=== PATIENT | female | born 1945 | race Asian ===

== ENCOUNTER 2017-08-01 18:15 | Inpatient (IN) | payer MEDICARE, OTHER ==
[2017-08-01] MEDS: ONDANSETRON 4 MG INJ IV ×2 (19:11→20:53)
[2017-08-01] MEDS: HYDROmorphONE 2 MG/ML SYG IV ×2 (19:34→22:25)
[2017-08-01 19:37] LABS: ADD MAN DIFF? NO
[2017-08-01 19:39] LABS: WHITE BLOOD COUNT 7.6 10^3/ul (4.8-10.8)
[2017-08-01 19:39] LABS: BASOPHILS % 0.4 % (0.0-2.0); EOSINOPHILS # 0.3 10^3/ul (0.0-0.5); EOSINOPHILS % 3.8 % (0.0-7.0); HEMATOCRIT 39.5 % (42.0-52.0); HEMOGLOBIN 13.2 g/dl (14.0-18.0); LYMPHOCYTES # 2.5 10^3/ul (0.8-2.9); LYMPHOCYTES % 32.4 % (15.0-51.0); MEAN CORPUSCULAR HGB CONC 33.4 g/dl (32.0-37.0); MEAN CORPUSCULAR VOLUME 95.6 fl (82.0-101.0); MEAN PLATELET VOLUME 10.5 fl (7.4-10.4); MONOCYTE # 0.7 10^3/ul (0.3-0.9); MONOCYTES % 8.6 % (0.0-11.0); NEUTROPHIL # 4.2 10^3/ul (1.6-7.5); NEUTROPHILS % 54.5 % (39.0-77.0); PLATELET COUNT 215 10^3/UL (140-415); RED BLOOD COUNT 4.13 10^6/ul (4.70-6.10); RED CELL DISTRIBUTION WIDTH 11.9 % (11.5-14.5)
[2017-08-01 19:56] LABS: ANION GAP 13 (8-16); BLOOD UREA NITROGEN 19 mg/dl (7-20); CALCIUM 9.7 mg/dl (8.4-10.2); CARBON DIOXIDE 31 mmol/L (21-31); CHLORIDE 101 mmol/L (97-110); CREATININE 0.79 mg/dl (0.61-1.24); GLUCOSE 122 mg/dl (70-220); POTASSIUM 4.3 mmol/L (3.5-5.1); SODIUM 141 mmol/L (135-144)
[2017-08-01 20:00] LABS: INR 0.93; PROTIME 12.6 Sec (11.9-14.9)
[2017-08-01 20:01] LABS: PARTIAL THROMBOPLASTIN TIME 26.3 Sec (25.0-35.0)
[2017-08-01] MEDS: HYDROmorphONE 1 MG/ML SYG IV (20:54)
[2017-08-01] MEDS: SOD CHLORIDE 0.9% 1,000 ML IV (21:54)
[2017-08-01] MEDS ORDERED: ONDANSETRON 4 MG INJ IV (22:00)
[2017-08-01] MEDS ORDERED: ACETAMINOPHEN 325 MG TAB PO (22:00)
[2017-08-01] MEDS ORDERED: BISACODYL (EC) 5 MG TAB PO (23:30)
[2017-08-01] MEDS ORDERED: DOCUSATE SODIUM 100 MG CAP PO (23:30)
[2017-08-01] MEDS ORDERED: MAGNESIUM HYDROXIDE 30ML CUP PO (23:30)
[2017-08-02] MEDS ORDERED: PROPRANOLOL 20 MG TAB PO ×2 (00:38→21:00)
[2017-08-02] MEDS: morphine 2 MG INJ IV ×3 (00:53→09:15)
[2017-08-02] MEDS: NACL 0.9% 3 ML SYG IV (00:58)
[2017-08-02] MEDS: ATORVASTATIN 10 MG TAB PO ×2 (03:17→21:00)
[2017-08-02] MEDS: PROPRANOLOL 20 MG TAB PO (03:28)
[2017-08-02] MEDS: PROPRANOLOL (LA) 60 MG CAP PO ×2 (03:47→21:00)
[2017-08-02 04:50] LABS: ADD MAN DIFF? NO
[2017-08-02 04:55] LABS: WHITE BLOOD COUNT 8.9 10^3/ul (4.8-10.8)
[2017-08-02 04:55] LABS: BASOPHILS % 0.1 % (0.0-2.0); HEMATOCRIT 34.1 % (37.0-47.0); HEMOGLOBIN 11.5 g/dl (12.0-16.0); LYMPHOCYTES # 1.6 10^3/ul (0.8-2.9); LYMPHOCYTES % 17.8 % (15.0-51.0); MEAN CORPUSCULAR HEMOGLOBIN 32.2 pg (29.0-33.0); MEAN CORPUSCULAR HGB CONC 33.7 g/dl (32.0-37.0); MEAN CORPUSCULAR VOLUME 95.5 fl (82.0-101.0); MEAN PLATELET VOLUME 10.5 fl (7.4-10.4); MONOCYTE # 0.5 10^3/ul (0.3-0.9); MONOCYTES % 5.4 % (0.0-11.0); NEUTROPHIL # 6.8 10^3/ul (1.6-7.5); NEUTROPHILS % 76.5 % (39.0-77.0); PLATELET COUNT 184 10^3/UL (140-415); RED BLOOD COUNT 3.57 10^6/ul (4.20-5.40)
[2017-08-02 05:20] LABS: ANION GAP 11 (8-16); BLOOD UREA NITROGEN 17 mg/dl (7-20); CARBON DIOXIDE 29 mmol/L (21-31); CHLORIDE 106 mmol/L (97-110); CREATININE 0.65 mg/dl (0.44-1.00); GLUCOSE 132 mg/dl (70-220); MAGNESIUM 1.9 mg/dl (1.7-2.5); PHOSPHORUS 3.8 mg/dl (2.5-4.9); POTASSIUM 4.8 mmol/L (3.5-5.1); SODIUM 141 mmol/L (135-144)
[2017-08-02] MEDS ORDERED: CEFAZOLIN 1 GM INJ (07:00)
[2017-08-02] MEDS: ENOXAPARIN 40 MG/0.4 ML SYG SC (09:00)
[2017-08-02] MEDS: ONDANSETRON 4 MG INJ IV (09:15)
[2017-08-02] MEDS: HYDROmorphONE 0.5 MG/0.5 ML SYG IV ×2 (14:05→22:23)
[2017-08-02 15:49] LABS: ADD UMIC YES; UR ASCORBIC ACID 40 mg/dL (NEGATIVE); UR BACTERIA FEW /HPF (NONE SEEN); UR BILIRUBIN (Dip) NEGATIVE (NEGATIVE); UR BLOOD (Dip) NEGATIVE (NEGATIVE); UR CLARITY SLIGHTLY CLOUDY (CLEAR); UR COLOR YELLOW (YELLOW); UR GLUCOSE (Dip) NEGATIVE (NEGATIVE); UR KETONES (Dip) 1+ mg/dL (NEGATIVE); UR LEUKOCYTE ESTERASE (Dip) 1+ Leu/ul (NEGATIVE); UR MUCUS FEW /HPF (NONE SEEN); UR NITRITE (Dip) POSITIVE (NEGATIVE); UR RBC 1 /HPF (0-5); UR SPECIFIC GRAVITY (Dip) 1.024 (1.003-1.030); UR TOTAL PROTEIN (Dip) 1+ mg/dl (NEGATIVE); UR UROBILINOGEN (Dip) NEGATIVE (NEGATIVE); UR WBC 27 /HPF (0-5)
[2017-08-02] MEDS ORDERED: FENTAnyl 50 MCG/ML VIAL ×2 (16:44→17:01)
[2017-08-02] MEDS ORDERED: morphine SULFATE/PF (10 MG/10 ML) INJ (16:44)
[2017-08-02] MEDS ORDERED: LIDOCAINE 1% (MDV) 20 ML INJ (17:01)
[2017-08-02] MEDS ORDERED: ROCURONIUM 50 MG INJ (17:01)
[2017-08-02] MEDS ORDERED: PROPOFOL 20 ML (17:01)
[2017-08-02] MEDS ORDERED: PHENYLephrine (100 MCG/ML) 5ML SYG ×4 (17:13→19:53)
[2017-08-02] MEDS ORDERED: MIDAZOLAM 1 MG/ML 2 ML INJ ×2 (17:52→22:18)
[2017-08-02] MEDS ORDERED: DEXAMETHASONE 4 MG/ML 1 ML INJ ×2 (18:06→18:11)
[2017-08-02] MEDS ORDERED: ONDANSETRON 4 MG INJ (18:06)
[2017-08-02] MEDS ORDERED: FAMOTIDINE 20 MG INJ (18:06)
[2017-08-02] MEDS ORDERED: ROPIVACAINE 0.5 % 30 ML VIAL (18:11)
[2017-08-02] MEDS ORDERED: PHENYLephrine 10 MG INJ (18:46)
[2017-08-02 20:06] LABS: IMMEDIATE SPIN CROSSMATCH 1 2
[2017-08-02 21:48] LABS: ADD MAN DIFF? NO
[2017-08-02 21:53] LABS: WHITE BLOOD COUNT 10.3 10^3/ul (4.8-10.8)
[2017-08-02 21:53] LABS: BASOPHILS % 0.2 % (0.0-2.0); HEMATOCRIT 34.3 % (37.0-47.0); HEMOGLOBIN 11.7 g/dl (12.0-16.0); LYMPHOCYTES # 0.9 10^3/ul (0.8-2.9); LYMPHOCYTES % 8.5 % (15.0-51.0); MEAN CORPUSCULAR HEMOGLOBIN 32.4 pg (29.0-33.0); MEAN CORPUSCULAR HGB CONC 34.1 g/dl (32.0-37.0); MEAN PLATELET VOLUME 10.3 fl (7.4-10.4); MONOCYTE # 0.6 10^3/ul (0.3-0.9); MONOCYTES % 5.7 % (0.0-11.0); NEUTROPHIL # 8.8 10^3/ul (1.6-7.5); NEUTROPHILS % 85.2 % (39.0-77.0); PLATELET COUNT 115 10^3/UL (140-415); RED BLOOD COUNT 3.61 10^6/ul (4.20-5.40); RED CELL DISTRIBUTION WIDTH 13.6 % (11.5-14.5)
[2017-08-02] MEDS ORDERED: NALOXONE (0.4 MG/ML) INJ IV (22:00)
[2017-08-02] MEDS ORDERED: ONDANSETRON 4 MG INJ IV (22:00)
[2017-08-02] MEDS ORDERED: HYDROmorphONE 0.5 MG/0.5 ML SYG IV (22:00)
[2017-08-02] MEDS ORDERED: LIDOCAINE 1%/EPI 30 ML INJ (22:10)
[2017-08-02] MEDS ORDERED: HYDROmorphONE (0.2 MG/ML) 10ML SYG IV (22:11)
[2017-08-02] MEDS: MIDAZOLAM 1 MG/ML 2 ML INJ IV (22:36)
[2017-08-02 22:38] LABS: ANION GAP 9 (8-16); BLOOD UREA NITROGEN 12 mg/dl (7-20); CALCIUM 6.8 mg/dl (8.4-10.2); CARBON DIOXIDE 23 mmol/L (21-31); CHLORIDE 113 mmol/L (97-110); CREATININE 0.56 mg/dl (0.44-1.00); GLUCOSE 152 mg/dl (70-220); POTASSIUM 4.5 mmol/L (3.5-5.1); SODIUM 140 mmol/L (135-144)
[2017-08-02 23:07] LABS: INR 1.15; PROTIME 14.9 Sec (11.9-14.9); PT RATIO 1.2
[2017-08-02] MEDS: DIPHENHYDRAMINE 50 MG INJ IV (23:30)
[2017-08-03 05:20] LABS: ADD MAN DIFF? NO
[2017-08-03 05:28] LABS: BASOPHILS % 0.1 % (0.0-2.0); HEMATOCRIT 32.4 % (37.0-47.0); LYMPHOCYTES # 1.1 10^3/ul (0.8-2.9); LYMPHOCYTES % 8.9 % (15.0-51.0); MEAN CORPUSCULAR HEMOGLOBIN 32.1 pg (29.0-33.0); MEAN CORPUSCULAR VOLUME 94.5 fl (82.0-101.0); MEAN PLATELET VOLUME 10.8 fl (7.4-10.4); MONOCYTE # 0.6 10^3/ul (0.3-0.9); MONOCYTES % 4.8 % (0.0-11.0); NEUTROPHIL # 10.6 10^3/ul (1.6-7.5); NEUTROPHILS % 85.9 % (39.0-77.0); PLATELET COUNT 114 10^3/UL (140-415); RED BLOOD COUNT 3.43 10^6/ul (4.20-5.40); RED CELL DISTRIBUTION WIDTH 14.6 % (11.5-14.5)
[2017-08-03 05:28] LABS: WHITE BLOOD COUNT 12.4 10^3/ul (4.8-10.8)
[2017-08-03 05:47] LABS: POSITIVE DIFF @See below
[2017-08-03 05:59] LABS: ANION GAP 10 (8-16); BLOOD UREA NITROGEN 12 mg/dl (7-20); CALCIUM 7.6 mg/dl (8.4-10.2); CARBON DIOXIDE 28 mmol/L (21-31); CHLORIDE 111 mmol/L (97-110); CREATININE 0.68 mg/dl (0.44-1.00); GLUCOSE 139 mg/dl (70-220); POTASSIUM 4.5 mmol/L (3.5-5.1); SODIUM 144 mmol/L (135-144)
[2017-08-03] MEDS: ENOXAPARIN 40 MG/0.4 ML SYG SC (08:31)
[2017-08-03] MEDS: ONDANSETRON 4 MG INJ IV ×2 (14:49→23:19)
[2017-08-03] MEDS: HYDROmorphONE 0.5 MG/0.5 ML SYG IV ×2 (18:19→23:15)
[2017-08-03] MEDS: LEVOFLOXACIN 250 MG TAB PO (18:50)
[2017-08-03] MEDS: PROPRANOLOL (LA) 60 MG CAP PO (20:29)
[2017-08-03] MEDS: ATORVASTATIN 10 MG TAB PO (20:30)
[2017-08-03] MEDS ORDERED: VITAMIN A & D 5 GM OINT PACKET TOP (20:50)
[2017-08-04] MEDS: LEVOFLOXACIN 250 MG TAB PO (05:55)
[2017-08-04] MEDS ORDERED: LEVOFLOXACIN 250 MG TAB PO (06:00)
[2017-08-04] MEDS: ONDANSETRON 4 MG INJ IV (09:35)
[2017-08-04] MEDS: HYDROmorphONE 0.5 MG/0.5 ML SYG IV (09:36)
[2017-08-04] MEDS: ENOXAPARIN 40 MG/0.4 ML SYG SC (09:47)
[2017-08-04] MEDS: HYDROCODONE/APAP (5/325) TAB PO (15:20)
[2017-08-04] MEDS: ATORVASTATIN 10 MG TAB PO (20:34)
[2017-08-04] MEDS: DOCUSATE SODIUM 100 MG CAP PO (20:34)
[2017-08-04] MEDS: PROPRANOLOL (LA) 60 MG CAP PO (20:34)
[2017-08-05] MEDS: ACETAMINOPHEN 325 MG TAB PO (03:18)
[2017-08-05] MEDS: LEVOFLOXACIN 250 MG TAB PO (04:59)
[2017-08-05 05:54] LABS: ADD MAN DIFF? NO
[2017-08-05 05:57] LABS: WHITE BLOOD COUNT 10.1 10^3/ul (4.8-10.8)
[2017-08-05 05:57] LABS: BASOPHILS % 0.2 % (0.0-2.0); EOSINOPHILS # 0.1 10^3/ul (0.0-0.5); EOSINOPHILS % 1.3 % (0.0-7.0); HEMATOCRIT 24.7 % (37.0-47.0); HEMOGLOBIN 8.6 g/dl (12.0-16.0); LYMPHOCYTES # 1.6 10^3/ul (0.8-2.9); LYMPHOCYTES % 15.9 % (15.0-51.0); MEAN CORPUSCULAR HEMOGLOBIN 32.1 pg (29.0-33.0); MEAN CORPUSCULAR HGB CONC 34.8 g/dl (32.0-37.0); MEAN CORPUSCULAR VOLUME 92.2 fl (82.0-101.0); MEAN PLATELET VOLUME 11.1 fl (7.4-10.4); MONOCYTE # 1.1 10^3/ul (0.3-0.9); MONOCYTES % 10.6 % (0.0-11.0); NEUTROPHIL # 7.2 10^3/ul (1.6-7.5); NEUTROPHILS % 71.3 % (39.0-77.0); PLATELET COUNT 135 10^3/UL (140-415); RED BLOOD COUNT 2.68 10^6/ul (4.20-5.40); RED CELL DISTRIBUTION WIDTH 13.5 % (11.5-14.5)
[2017-08-05 06:08] LABS: POSITIVE DIFF @See below
[2017-08-05 06:55] LABS: ALANINE AMINOTRANSFERASE 42 IU/L (13-69); ALBUMIN 3.1 g/dl (3.3-4.9); ALBUMIN/GLOBULIN RATIO 1.29; ALKALINE PHOSPHATASE 56 IU/L (42-121); ANION GAP 12 (8-16); ASPARTATE AMINO TRANSFERASE 80 IU/L (15-46); BILIRUBIN,INDIRECT 0.5 mg/dl (0-1.1); BILIRUBIN,TOTAL 0.5 mg/dl (0.2-1.3); BLOOD UREA NITROGEN 10 mg/dl (7-20); CALCIUM 8.4 mg/dl (8.4-10.2); CARBON DIOXIDE 32 mmol/L (21-31); CHLORIDE 103 mmol/L (97-110); CREATININE 0.69 mg/dl (0.44-1.00); GLUCOSE 130 mg/dl (70-220); POTASSIUM 4.3 mmol/L (3.5-5.1); SODIUM 143 mmol/L (135-144); TOTAL PROTEIN 5.5 g/dl (6.1-8.1)
[2017-08-05 07:50] LABS: HEMOGLOBIN A1C 5.6 % (0-5.9)
[2017-08-05] MEDS: CALCIUM CARBONATE 1.25 GM TAB PO (09:04)
[2017-08-05] MEDS: ENOXAPARIN 40 MG/0.4 ML SYG SC (09:05)
[2017-08-05] MEDS: ONDANSETRON 4 MG INJ IV (10:56)
[2017-08-05] MEDS ORDERED: BISACODYL 10 MG SUPP PR (14:30)
[2017-08-05] MEDS: BISACODYL (EC) 5 MG TAB PO (14:34)
[2017-08-05] MEDS: MAGNESIUM HYDROXIDE 30ML CUP PO (14:34)
[2017-08-05] MEDS: ONDANSETRON 4 MG TAB PO (15:15)
[2017-08-05] MEDS: DOCUSATE SODIUM 100 MG CAP PO (21:00)
[2017-08-05] MEDS: ATORVASTATIN 10 MG TAB PO (21:09)
[2017-08-05] MEDS: PROPRANOLOL (LA) 60 MG CAP PO (21:10)
[2017-08-05] MEDS: HYDROCODONE/APAP (10/325) TAB PO (21:55)
[2017-08-06] MEDS: LEVOFLOXACIN 250 MG TAB PO (06:56)
[2017-08-06] MEDS: MAGNESIUM HYDROXIDE 30ML CUP PO ×2 (09:00→09:24)
[2017-08-06] MEDS: CALCIUM CARBONATE 1.25 GM TAB PO (09:23)
[2017-08-06] MEDS: ENOXAPARIN 40 MG/0.4 ML SYG SC (09:24)
[2017-08-06] MEDS: BISACODYL (EC) 5 MG TAB PO (09:24)
[2017-08-06] MEDS: ACETAMINOPHEN 325 MG TAB PO (10:09)
[2017-08-06] MEDS: HYDROCODONE/APAP (10/325) TAB PO ×3 (11:51→22:18)
[2017-08-06] MEDS: ATORVASTATIN 10 MG TAB PO (21:18)
[2017-08-06] MEDS: DOCUSATE SODIUM 100 MG CAP PO (21:18)
[2017-08-06] MEDS: PROPRANOLOL (LA) 60 MG CAP PO (21:19)
[2017-08-07 05:08] LABS: ADD MAN DIFF? NO
[2017-08-07 05:10] LABS: WHITE BLOOD COUNT 9.1 10^3/ul (4.8-10.8)
[2017-08-07 05:10] LABS: BASOPHILS % 0.2 % (0.0-2.0); EOSINOPHILS # 0.5 10^3/ul (0.0-0.5); EOSINOPHILS % 5.8 % (0.0-7.0); HEMATOCRIT 25.1 % (37.0-47.0); HEMOGLOBIN 8.4 g/dl (12.0-16.0); LYMPHOCYTES # 2.6 10^3/ul (0.8-2.9); LYMPHOCYTES % 28.6 % (15.0-51.0); MEAN CORPUSCULAR HEMOGLOBIN 31.8 pg (29.0-33.0); MEAN CORPUSCULAR HGB CONC 33.5 g/dl (32.0-37.0); MEAN CORPUSCULAR VOLUME 95.1 fl (82.0-101.0); MEAN PLATELET VOLUME 10.2 fl (7.4-10.4); MONOCYTE # 0.9 10^3/ul (0.3-0.9); MONOCYTES % 10.4 % (0.0-11.0); NEUTROPHIL # 4.9 10^3/ul (1.6-7.5); NEUTROPHILS % 54.4 % (39.0-77.0); NUCLEATED RED BLOOD CELLS% 0.4 /100WBC (0.0-0.0); PLATELET COUNT 231 10^3/UL (140-415); RED BLOOD COUNT 2.64 10^6/ul (4.20-5.40); RED CELL DISTRIBUTION WIDTH 13.3 % (11.5-14.5)
[2017-08-07] MEDS: LEVOFLOXACIN 250 MG TAB PO (05:41)
[2017-08-07] MEDS: HYDROCODONE/APAP (10/325) TAB PO ×2 (08:30→18:12)
[2017-08-07] MEDS: BISACODYL (EC) 5 MG TAB PO (08:30)
[2017-08-07] MEDS: CALCIUM CARBONATE 1.25 GM TAB PO (08:30)
[2017-08-07] MEDS: ENOXAPARIN 40 MG/0.4 ML SYG SC (08:31)
[2017-08-07] MEDS ORDERED: CHOLECALCIFEROL 2,000 UNIT CAP PO (10:00)
[2017-08-07] MEDS: ASCORBIC ACID 500 MG TAB PO ×3 (10:00→10:19)
[2017-08-07] MEDS: CHOLECALCIFEROL 2,000 UNIT CAP PO (10:19)
[2017-08-07] MEDS: FLUTICASONE 0.05% 16 GM NAS SPRAY NASAL (12:29)
[2017-08-07] MEDS: CALCIUM CARBONATE 500 MG CHEW TAB PO (18:35)
[2017-08-07] MEDS: FAMOTIDINE 20 MG TAB PO (18:35)
[2017-08-07] MEDS: PROPRANOLOL (LA) 60 MG CAP PO (20:23)
[2017-08-07] MEDS: DOCUSATE SODIUM 100 MG CAP PO (20:23)
[2017-08-07] MEDS: ATORVASTATIN 10 MG TAB PO (20:23)
== END 2017-08-07 21:50 | DRG 481 ==
LOC: E/R 18:15 → MS1 22:28
PROC: 0QS604Z Reposition Right Upper Femur with Internal Fixation Device, Open Approach (ICD-10-PCS; principal; 2017-08-02 16:00)
DX: S72.21XA Displaced subtrochanteric fracture of right femur, initial encounter for closed fracture (principal); N30.00 Acute cystitis without hematuria; D69.6 Thrombocytopenia, unspecified; I10 Essential (primary) hypertension; D50.9 Iron deficiency anemia, unspecified; E78.5 Hyperlipidemia, unspecified; S00.81XA Abrasion of other part of head, initial encounter; K59.00 Constipation, unspecified; W18.30XA Fall on same level, unspecified, initial encounter; W01.198A Fall on same level from slipping, tripping and stumbling with subsequent striking against other object, initial encounter; Y93.01 Activity, walking, marching and hiking; Y92.521 Bus station as the place of occurrence of the external cause
CPT/HCPCS: 36430; 70450; 71045; 73500; 73530; 73550; 80048; 80053; 81001; 82306; 83036; 83735; 84100; 84443; 85025; 85610; 85730; 86644; 86850; 86900; 86901; 86920; 87086; 93005; 96374; 96375; 96376; 97110; 97116; 97163; 97530; 99285-25

== ENCOUNTER 2017-08-07 21:55 | Inpatient (IN) | payer MEDICARE, OTHER ==
[2017-08-07] MEDS: HYDROCODONE/APAP (10/325) TAB PO (23:29)
[2017-08-08 00:05] LABS: ADD UMIC YES; UR ASCORBIC ACID NEGATIVE (NEGATIVE); UR BILIRUBIN (Dip) NEGATIVE (NEGATIVE); UR BLOOD (Dip) 2+ mg/dL (NEGATIVE); UR CLARITY CLEAR (CLEAR); UR COLOR YELLOW (YELLOW); UR GLUCOSE (Dip) NEGATIVE (NEGATIVE); UR KETONES (Dip) TRACE mg/dL (NEGATIVE); UR LEUKOCYTE ESTERASE (Dip) NEGATIVE Leu/ul (NEGATIVE); UR NITRITE (Dip) NEGATIVE (NEGATIVE); UR RBC 0 /HPF (0-5); UR SPECIFIC GRAVITY (Dip) 1.008 (1.003-1.030); UR TOTAL PROTEIN (Dip) NEGATIVE (NEGATIVE); UR UROBILINOGEN (Dip) NEGATIVE (NEGATIVE); UR WBC 1 /HPF (0-5)
[2017-08-08] MEDS: LEVOFLOXACIN 250 MG TAB PO (06:17)
[2017-08-08 06:33] LABS: ADD MAN DIFF? NO
[2017-08-08 06:41] LABS: BASOPHILS % 0.3 % (0.0-2.0); EOSINOPHILS # 0.4 10^3/ul (0.0-0.5); EOSINOPHILS % 3.8 % (0.0-7.0); HEMATOCRIT 27.6 % (37.0-47.0); HEMOGLOBIN 9.2 g/dl (12.0-16.0); LYMPHOCYTES # 2.1 10^3/ul (0.8-2.9); LYMPHOCYTES % 21.4 % (15.0-51.0); MEAN CORPUSCULAR HEMOGLOBIN 32.1 pg (29.0-33.0); MEAN CORPUSCULAR HGB CONC 33.3 g/dl (32.0-37.0); MEAN CORPUSCULAR VOLUME 96.2 fl (82.0-101.0); MEAN PLATELET VOLUME 9.5 fl (7.4-10.4); MONOCYTE # 0.8 10^3/ul (0.3-0.9); MONOCYTES % 8.4 % (0.0-11.0); NEUTROPHIL # 6.4 10^3/ul (1.6-7.5); NEUTROPHILS % 65.6 % (39.0-77.0); NUCLEATED RED BLOOD CELLS% 0.3 /100WBC (0.0-0.0); PLATELET COUNT 292 10^3/UL (140-415); RED BLOOD COUNT 2.87 10^6/ul (4.20-5.40); RED CELL DISTRIBUTION WIDTH 13.9 % (11.5-14.5)
[2017-08-08 06:41] LABS: WHITE BLOOD COUNT 9.7 10^3/ul (4.8-10.8)
[2017-08-08 07:15] LABS: ALANINE AMINOTRANSFERASE 45 IU/L (13-69); ALBUMIN 3.3 g/dl (3.3-4.9); ALBUMIN/GLOBULIN RATIO 1.22; ALKALINE PHOSPHATASE 57 IU/L (42-121); ANION GAP 11 (8-16); ASPARTATE AMINO TRANSFERASE 57 IU/L (15-46); BILIRUBIN,INDIRECT 0.7 mg/dl (0-1.1); BILIRUBIN,TOTAL 0.7 mg/dl (0.2-1.3); BLOOD UREA NITROGEN 12 mg/dl (7-20); CALCIUM 8.7 mg/dl (8.4-10.2); CARBON DIOXIDE 34 mmol/L (21-31); CHLORIDE 97 mmol/L (97-110); CREATININE 0.67 mg/dl (0.44-1.00); GLUCOSE 126 mg/dl (70-220); POTASSIUM 3.2 mmol/L (3.5-5.1); SODIUM 139 mmol/L (135-144)
[2017-08-08] MEDS: CHOLECALCIFEROL 2,000 UNIT CAP PO (08:40)
[2017-08-08] MEDS: HYDROCODONE/APAP (10/325) TAB PO ×4 (08:40→22:18)
[2017-08-08] MEDS: ASCORBIC ACID 500 MG TAB PO (08:40)
[2017-08-08] MEDS: ACETAMINOPHEN 325 MG TAB PO (10:46)
[2017-08-08] MEDS: POTASSIUM CHLORIDE (SR) 20 MEQ TAB PO (13:10)
[2017-08-08] MEDS: ATORVASTATIN 10 MG TAB PO (20:28)
[2017-08-08] MEDS: DOCUSATE SODIUM 100 MG CAP PO (20:28)
[2017-08-08] MEDS: PROPRANOLOL (LA) 60 MG CAP PO (20:28)
[2017-08-09] MEDS: HYDROCODONE/APAP (10/325) TAB PO ×4 (07:54→22:01)
[2017-08-09] MEDS: ONDANSETRON 4 MG TAB PO (08:49)
[2017-08-09] MEDS: CHOLECALCIFEROL 2,000 UNIT CAP PO (08:50)
[2017-08-09] MEDS: ASCORBIC ACID 500 MG TAB PO (08:50)
[2017-08-09] MEDS: ENOXAPARIN 40 MG/0.4 ML SYG SC (08:53)
[2017-08-09] MEDS ORDERED: LACTULOSE 30ML CUP PO (09:00)
[2017-08-09] MEDS: PROPRANOLOL (LA) 60 MG CAP PO (21:00)
[2017-08-09] MEDS: DOCUSATE SODIUM 100 MG CAP PO (21:15)
[2017-08-09] MEDS: ATORVASTATIN 10 MG TAB PO (21:15)
[2017-08-10] MEDS: ASCORBIC ACID 500 MG TAB PO (08:26)
[2017-08-10] MEDS: SENNA TAB PO (08:26)
[2017-08-10] MEDS: CHOLECALCIFEROL 2,000 UNIT CAP PO (08:26)
[2017-08-10] MEDS: ENOXAPARIN 40 MG/0.4 ML SYG SC (08:30)
[2017-08-10] MEDS: ONDANSETRON 4 MG TAB PO ×2 (09:34→17:17)
[2017-08-10] MEDS: HYDROCODONE/APAP (10/325) TAB PO ×3 (09:34→22:23)
[2017-08-10 12:20] LABS: ADD MAN DIFF? NO
[2017-08-10 12:22] LABS: BASOPHILS % 0.3 % (0.0-2.0); EOSINOPHILS # 0.4 10^3/ul (0.0-0.5); EOSINOPHILS % 3.6 % (0.0-7.0); HEMATOCRIT 25.5 % (37.0-47.0); HEMOGLOBIN 8.3 g/dl (12.0-16.0); LYMPHOCYTES # 2.1 10^3/ul (0.8-2.9); LYMPHOCYTES % 17.5 % (15.0-51.0); MEAN CORPUSCULAR HEMOGLOBIN 32.3 pg (29.0-33.0); MEAN CORPUSCULAR HGB CONC 32.5 g/dl (32.0-37.0); MEAN CORPUSCULAR VOLUME 99.2 fl (82.0-101.0); MEAN PLATELET VOLUME 9.2 fl (7.4-10.4); MONOCYTE # 1.2 10^3/ul (0.3-0.9); MONOCYTES % 9.6 % (0.0-11.0); NEUTROPHIL # 8.1 10^3/ul (1.6-7.5); NEUTROPHILS % 67.7 % (39.0-77.0); PLATELET COUNT 342 10^3/UL (140-415); RED BLOOD COUNT 2.57 10^6/ul (4.20-5.40)
[2017-08-10] MEDS: ATORVASTATIN 10 MG TAB PO (20:51)
[2017-08-10] MEDS: DOCUSATE SODIUM 100 MG CAP PO (20:51)
[2017-08-10] MEDS: PROPRANOLOL (LA) 60 MG CAP PO (20:52)
[2017-08-10] MEDS: BISACODYL 10 MG SUPP PR (20:56)
[2017-08-11] MEDS: METHOCARBAMOL 750 MG TAB PO (09:02)
[2017-08-11] MEDS: HYDROCODONE/APAP (10/325) TAB PO ×3 (09:03→23:38)
[2017-08-11] MEDS: CHOLECALCIFEROL 2,000 UNIT CAP PO (09:03)
[2017-08-11] MEDS: SENNA TAB PO (09:03)
[2017-08-11] MEDS: ASCORBIC ACID 500 MG TAB PO (09:03)
[2017-08-11] MEDS: ENOXAPARIN 40 MG/0.4 ML SYG SC (09:06)
[2017-08-11] MEDS: PANTOPRAZOLE (EC) 40 MG TAB PO (12:10)
[2017-08-11] MEDS: DOCUSATE SODIUM 100 MG CAP PO (20:24)
[2017-08-11] MEDS: ATORVASTATIN 10 MG TAB PO (20:24)
[2017-08-11] MEDS: PROPRANOLOL (LA) 60 MG CAP PO (20:25)
[2017-08-12] MEDS: PANTOPRAZOLE (EC) 40 MG TAB PO (06:08)
[2017-08-12] MEDS: HYDROCODONE/APAP (10/325) TAB PO ×2 (08:11→15:10)
[2017-08-12] MEDS: SENNA TAB PO (08:11)
[2017-08-12] MEDS: CHOLECALCIFEROL 2,000 UNIT CAP PO (08:12)
[2017-08-12] MEDS: ASCORBIC ACID 500 MG TAB PO (08:12)
[2017-08-12] MEDS: ENOXAPARIN 40 MG/0.4 ML SYG SC (08:32)
[2017-08-12] MEDS: ATORVASTATIN 10 MG TAB PO (20:42)
[2017-08-12] MEDS: DOCUSATE SODIUM 100 MG CAP PO (20:42)
[2017-08-12] MEDS: BISACODYL (EC) 5 MG TAB PO (20:42)
[2017-08-12] MEDS: PROPRANOLOL (LA) 60 MG CAP PO (20:44)
[2017-08-13] MEDS: HYDROCODONE/APAP (10/325) TAB PO ×2 (00:21→08:32)
[2017-08-13] MEDS: PANTOPRAZOLE (EC) 40 MG TAB PO (06:34)
[2017-08-13] MEDS: BISACODYL (EC) 5 MG TAB PO (06:39)
[2017-08-13] MEDS: CHOLECALCIFEROL 2,000 UNIT CAP PO (08:22)
[2017-08-13] MEDS: SENNA TAB PO (08:22)
[2017-08-13] MEDS: ASCORBIC ACID 500 MG TAB PO (08:22)
[2017-08-13] MEDS: ENOXAPARIN 40 MG/0.4 ML SYG SC (08:25)
[2017-08-13] MEDS: MAGNESIUM HYDROXIDE 30ML CUP PO (16:30)
[2017-08-13] MEDS: DOCUSATE SODIUM 100 MG CAP PO (17:00)
[2017-08-13] MEDS ORDERED: NA PHOSPHATE/BIPHOS 133 ML ENEMA PR (20:00)
[2017-08-13] MEDS: PROPRANOLOL (LA) 60 MG CAP PO (20:41)
[2017-08-13] MEDS: ATORVASTATIN 10 MG TAB PO (20:41)
[2017-08-14] MEDS: ACETAMINOPHEN 325 MG TAB PO ×3 (01:27→18:37)
[2017-08-14] MEDS: PANTOPRAZOLE (EC) 40 MG TAB PO (06:28)
[2017-08-14] MEDS: ASCORBIC ACID 500 MG TAB PO (09:11)
[2017-08-14] MEDS: CHOLECALCIFEROL 2,000 UNIT CAP PO (09:11)
[2017-08-14] MEDS: SENNA TAB PO (09:12)
[2017-08-14] MEDS: ENOXAPARIN 40 MG/0.4 ML SYG SC (09:13)
[2017-08-14] MEDS: ATORVASTATIN 10 MG TAB PO (20:17)
[2017-08-14] MEDS: PROPRANOLOL (LA) 60 MG CAP PO (20:18)
[2017-08-14] MEDS: DOCUSATE SODIUM 100 MG CAP PO (20:18)
[2017-08-15] MEDS: ACETAMINOPHEN 325 MG TAB PO ×3 (00:15→15:47)
[2017-08-15] MEDS: PANTOPRAZOLE (EC) 40 MG TAB PO (06:26)
[2017-08-15] MEDS: CHOLECALCIFEROL 2,000 UNIT CAP PO (08:40)
[2017-08-15] MEDS: ASCORBIC ACID 500 MG TAB PO (08:40)
[2017-08-15] MEDS: DOCUSATE SODIUM 100 MG CAP PO ×2 (08:40→21:10)
[2017-08-15] MEDS: SENNA TAB PO (08:40)
[2017-08-15] MEDS: ENOXAPARIN 40 MG/0.4 ML SYG SC (08:41)
[2017-08-15] MEDS: traMADol 50 MG TAB PO ×2 (16:35→21:10)
[2017-08-15] MEDS: METHOCARBAMOL 750 MG TAB PO (17:37)
[2017-08-15] MEDS: PROPRANOLOL (LA) 60 MG CAP PO (21:00)
[2017-08-15] MEDS: ATORVASTATIN 10 MG TAB PO (21:10)
[2017-08-16] MEDS: traMADol 50 MG TAB PO ×3 (02:44→18:13)
[2017-08-16] MEDS: PANTOPRAZOLE (EC) 40 MG TAB PO (06:56)
[2017-08-16] MEDS: ENOXAPARIN 40 MG/0.4 ML SYG SC (08:49)
[2017-08-16] MEDS: ASCORBIC ACID 500 MG TAB PO (08:51)
[2017-08-16] MEDS: DOCUSATE SODIUM 100 MG CAP PO ×2 (08:51→20:14)
[2017-08-16] MEDS: CHOLECALCIFEROL 2,000 UNIT CAP PO (08:51)
[2017-08-16] MEDS: SENNA TAB PO (08:51)
[2017-08-16 12:18] LABS: ADD MAN DIFF? NO
[2017-08-16 12:21] LABS: BASOPHILS % 0.2 % (0.0-2.0); EOSINOPHILS # 0.1 10^3/ul (0.0-0.5); EOSINOPHILS % 1.4 % (0.0-7.0); HEMATOCRIT 30.6 % (37.0-47.0); LYMPHOCYTES # 1.3 10^3/ul (0.8-2.9); LYMPHOCYTES % 13.1 % (15.0-51.0); MEAN CORPUSCULAR HGB CONC 32.7 g/dl (32.0-37.0); MEAN PLATELET VOLUME 8.4 fl (7.4-10.4); MONOCYTE # 0.7 10^3/ul (0.3-0.9); MONOCYTES % 6.7 % (0.0-11.0); NEUTROPHIL # 7.7 10^3/ul (1.6-7.5); NEUTROPHILS % 78.1 % (39.0-77.0); PLATELET COUNT 503 10^3/UL (140-415); RED BLOOD COUNT 3.03 10^6/ul (4.20-5.40); RED CELL DISTRIBUTION WIDTH 16.1 % (11.5-14.5)
[2017-08-16 12:21] LABS: WHITE BLOOD COUNT 9.9 10^3/ul (4.8-10.8)
[2017-08-16] MEDS: ATORVASTATIN 10 MG TAB PO (20:14)
[2017-08-16] MEDS: PROPRANOLOL (LA) 60 MG CAP PO (20:14)
[2017-08-16] MEDS: BISACODYL (EC) 5 MG TAB PO (21:23)
[2017-08-17] MEDS: PANTOPRAZOLE (EC) 40 MG TAB PO (06:32)
[2017-08-17] MEDS: ASCORBIC ACID 500 MG TAB PO (08:50)
[2017-08-17] MEDS: DOCUSATE SODIUM 100 MG CAP PO ×2 (08:50→20:34)
[2017-08-17] MEDS: SENNA TAB PO (08:50)
[2017-08-17] MEDS: CHOLECALCIFEROL 2,000 UNIT CAP PO (08:50)
[2017-08-17] MEDS: traMADol 50 MG TAB PO ×2 (08:51→12:54)
[2017-08-17] MEDS: ENOXAPARIN 40 MG/0.4 ML SYG SC (08:55)
[2017-08-17] MEDS ORDERED: HYDROCODONE/APAP (5/325) TAB PO (12:30)
[2017-08-17] MEDS: METHOCARBAMOL 750 MG TAB PO (12:54)
[2017-08-17] MEDS: HYDROCODONE/APAP (5/325) TAB PO (14:14)
[2017-08-17] MEDS: ACETAMINOPHEN 325 MG TAB PO (18:32)
[2017-08-17] MEDS: ATORVASTATIN 10 MG TAB PO (20:34)
[2017-08-17] MEDS: PROPRANOLOL (LA) 60 MG CAP PO (20:35)
[2017-08-18] MEDS: PANTOPRAZOLE (EC) 40 MG TAB PO (06:31)
[2017-08-18] MEDS: traMADol 50 MG TAB PO (06:31)
[2017-08-18] MEDS: ENOXAPARIN 40 MG/0.4 ML SYG SC (08:10)
[2017-08-18] MEDS: CHOLECALCIFEROL 2,000 UNIT CAP PO (08:15)
[2017-08-18] MEDS: SENNA TAB PO (08:15)
[2017-08-18] MEDS: ASCORBIC ACID 500 MG TAB PO (08:15)
[2017-08-18] MEDS: DOCUSATE SODIUM 100 MG CAP PO ×2 (08:15→21:12)
[2017-08-18] MEDS: HYDROCODONE/APAP (5/325) TAB PO ×3 (09:00→21:09)
[2017-08-18] MEDS: PROPRANOLOL (LA) 60 MG CAP PO (21:00)
[2017-08-18] MEDS: ATORVASTATIN 10 MG TAB PO (21:09)
[2017-08-19] MEDS: traMADol 50 MG TAB PO ×2 (00:12→06:53)
[2017-08-19] MEDS: PANTOPRAZOLE (EC) 40 MG TAB PO (06:12)
[2017-08-19 06:52] LABS: ADD MAN DIFF? NO
[2017-08-19 07:01] LABS: BASOPHILS % 0.5 % (0.0-2.0); EOSINOPHILS # 0.3 10^3/ul (0.0-0.5); EOSINOPHILS % 4.3 % (0.0-7.0); HEMATOCRIT 29.5 % (37.0-47.0); HEMOGLOBIN 9.4 g/dl (12.0-16.0); LYMPHOCYTES # 1.7 10^3/ul (0.8-2.9); LYMPHOCYTES % 28.7 % (15.0-51.0); MEAN CORPUSCULAR HEMOGLOBIN 32.1 pg (29.0-33.0); MEAN CORPUSCULAR HGB CONC 31.9 g/dl (32.0-37.0); MEAN CORPUSCULAR VOLUME 100.7 fl (82.0-101.0); MEAN PLATELET VOLUME 8.6 fl (7.4-10.4); MONOCYTE # 0.7 10^3/ul (0.3-0.9); MONOCYTES % 11.1 % (0.0-11.0); NEUTROPHIL # 3.3 10^3/ul (1.6-7.5); NEUTROPHILS % 55.1 % (39.0-77.0); PLATELET COUNT 466 10^3/UL (140-415); RED BLOOD COUNT 2.93 10^6/ul (4.20-5.40); RED CELL DISTRIBUTION WIDTH 16.1 % (11.5-14.5)
[2017-08-19 07:01] LABS: WHITE BLOOD COUNT 6.1 10^3/ul (4.8-10.8)
[2017-08-19 07:20] LABS: ANION GAP 12 (8-16); BLOOD UREA NITROGEN 17 mg/dl (7-20); CALCIUM 8.9 mg/dl (8.4-10.2); CARBON DIOXIDE 30 mmol/L (21-31); CHLORIDE 105 mmol/L (97-110); CREATININE 0.64 mg/dl (0.44-1.00); GLUCOSE 99 mg/dl (70-220); POTASSIUM 4.9 mmol/L (3.5-5.1); SODIUM 142 mmol/L (135-144)
[2017-08-19] MEDS: ENOXAPARIN 40 MG/0.4 ML SYG SC (08:08)
[2017-08-19] MEDS: SENNA TAB PO (08:09)
[2017-08-19] MEDS: CHOLECALCIFEROL 2,000 UNIT CAP PO (08:09)
[2017-08-19] MEDS: DOCUSATE SODIUM 100 MG CAP PO (08:09)
[2017-08-19] MEDS: ASCORBIC ACID 500 MG TAB PO (08:10)
== END 2017-08-19 09:45 | disposition home health service (06) | DRG 560 ==
LOC: VRC 21:55
PROC: F07Z5ZZ Bed Mobility Treatment (ICD-10-PCS; principal; 2017-08-07)
PROC: F08Z2ZZ Grooming/Personal Hygiene Treatment (ICD-10-PCS; 2017-08-07)
DX: S72.21XD Displaced subtrochanteric fracture of right femur, subsequent encounter for closed fracture with routine healing (principal); N30.00 Acute cystitis without hematuria; D64.9 Anemia, unspecified; I10 Essential (primary) hypertension; R52 Pain, unspecified; E78.5 Hyperlipidemia, unspecified; D72.829 Elevated white blood cell count, unspecified; Z96.643 Presence of artificial hip joint, bilateral
CPT/HCPCS: 80048; 80053; 81001; 85025; 87081; 87086; 92526; 92610; 97110; 97112; 97116; 97150; 97163; 97167; 97530; 97535; 97542

== ENCOUNTER 2017-09-24 11:50 | Inpatient (IN) | payer MEDICARE, OTHER ==
[2017-09-24 16:27] LABS: ADD MAN DIFF? NO
[2017-09-24 16:34] LABS: WHITE BLOOD COUNT 6.7 10^3/ul (4.8-10.8)
[2017-09-24 16:34] LABS: BASOPHILS % 0.5 % (0.0-2.0); EOSINOPHILS # 0.4 10^3/ul (0.0-0.5); EOSINOPHILS % 6.5 % (0.0-7.0); HEMATOCRIT 40.2 % (37.0-47.0); LYMPHOCYTES # 2.3 10^3/ul (0.8-2.9); LYMPHOCYTES % 34.9 % (15.0-51.0); MEAN CORPUSCULAR HGB CONC 32.3 g/dl (32.0-37.0); MEAN CORPUSCULAR VOLUME 95.9 fl (82.0-101.0); MEAN PLATELET VOLUME 9.6 fl (7.4-10.4); MONOCYTE # 0.6 10^3/ul (0.3-0.9); MONOCYTES % 8.7 % (0.0-11.0); NEUTROPHIL # 3.3 10^3/ul (1.6-7.5); NEUTROPHILS % 49.1 % (39.0-77.0); PLATELET COUNT 284 10^3/UL (140-415); RED BLOOD COUNT 4.19 10^6/ul (4.20-5.40); RED CELL DISTRIBUTION WIDTH 13.1 % (11.5-14.5)
[2017-09-24 16:49] LABS: INR 0.94; PROTIME 12.7 Sec (11.9-14.9)
[2017-09-24 16:50] LABS: PARTIAL THROMBOPLASTIN TIME 28.1 Sec (25.0-35.0)
[2017-09-24 16:54] LABS: ANION GAP 17 (8-16); BLOOD UREA NITROGEN 14 mg/dl (7-20); CALCIUM 10.1 mg/dl (8.4-10.2); CARBON DIOXIDE 32 mmol/L (21-31); CHLORIDE 100 mmol/L (97-110); GLUCOSE 122 mg/dl (70-220); POTASSIUM 3.6 mmol/L (3.5-5.1); SODIUM 145 mmol/L (135-144)
[2017-09-24] MEDS ORDERED: ONDANSETRON 4 MG INJ IV (18:30)
[2017-09-24] MEDS ORDERED: morphine 2 MG INJ IV (18:30)
[2017-09-24] MEDS: FAMOTIDINE 20 MG TAB PO (21:27)
[2017-09-24] MEDS: ATORVASTATIN 10 MG TAB PO (21:27)
[2017-09-25 05:37] LABS: ALANINE AMINOTRANSFERASE 23 IU/L (13-69); ALBUMIN/GLOBULIN RATIO 1.29; ALKALINE PHOSPHATASE 118 IU/L (42-121); ANION GAP 18 (8-16); ASPARTATE AMINO TRANSFERASE 30 IU/L (15-46); BILIRUBIN,INDIRECT 0.3 mg/dl (0-1.1); BILIRUBIN,TOTAL 0.3 mg/dl (0.2-1.3); BLOOD UREA NITROGEN 14 mg/dl (7-20); CALCIUM 9.7 mg/dl (8.4-10.2); CARBON DIOXIDE 30 mmol/L (21-31); CHLORIDE 104 mmol/L (97-110); CREATININE 0.63 mg/dl (0.44-1.00); GLUCOSE 104 mg/dl (70-220); POTASSIUM 4.7 mmol/L (3.5-5.1); SODIUM 147 mmol/L (135-144); TOTAL PROTEIN 7.1 g/dl (6.1-8.1)
[2017-09-25] MEDS: D5W-0.45 NACL + KCL 20 MEQ 1,000 ML IV (09:14)
[2017-09-25] MEDS: PROPRANOLOL 20 MG TAB PO (09:20)
[2017-09-25] MEDS: FAMOTIDINE 20 MG TAB PO ×2 (09:21→21:00)
[2017-09-25] MEDS ORDERED: LIDOCAINE 2% (SDV) 5 ML INJ (15:42)
[2017-09-25] MEDS ORDERED: morphine SULFATE/PF (10 MG/10 ML) INJ (15:42)
[2017-09-25] MEDS ORDERED: MIDAZOLAM 1 MG/ML 2 ML INJ (15:42)
[2017-09-25] MEDS ORDERED: BUPIVACAINE 0.75%/DEXT (SPINAL) 2 ML INJ (15:42)
[2017-09-25] MEDS ORDERED: PROPOFOL 20 ML (15:42)
[2017-09-25] MEDS ORDERED: EPHEDrine SULFATE 50 MG/5 ML SYG (16:07)
[2017-09-25] MEDS ORDERED: CEFAZOLIN 1 GM INJ ×2 (16:10→21:03)
[2017-09-25] MEDS ORDERED: FAMOTIDINE 20 MG INJ (16:16)
[2017-09-25] MEDS ORDERED: ONDANSETRON 4 MG INJ (16:16)
[2017-09-25] MEDS ORDERED: DEXAMETHASONE 4 MG/ML 1 ML INJ (16:16)
[2017-09-25] MEDS ORDERED: PHENYLephrine (100 MCG/ML) 5ML SYG ×2 (17:44→19:36)
[2017-09-25] MEDS ORDERED: GLYCOPYRROLATE 0.4 MG INJ (17:44)
[2017-09-25] MEDS: POLYMYXIN/BACITRACIN 1L IRRIG (17:48)
[2017-09-25] MEDS ORDERED: PHENYLephrine 10 MG INJ ×2 (18:33→19:49)
[2017-09-25 19:02] LABS: ADD MAN DIFF? NO
[2017-09-25] MEDS ORDERED: ALBUMIN HUMAN 5% 250 ML ×2 (20:30→20:49)
[2017-09-25 20:36] LABS: AADO2 Arterial 521.1 mmHg (7.0-24.0); Arterial Base Excess -4.9 mmol/L (-3.0-3); Arterial Blood Gas Oxygen Sat 98.2 mmHG (95.0-100.0); Arterial COHb 0.3 % (0.0-3.0); Arterial Fraction of Oxyhgb 97.4 % (93.0-99.0); Arterial HCO3 21.3 mmol/L (22.0-26.0); Arterial MetHb 0.5 % (0.0-1.5); Arterial Total Hemglobin 8.8 g/dl (12.0-18.0); MODE NON-REBREATHING MASK; Site A-Line
[2017-09-25] MEDS ORDERED: HETASTARCH 6% NACL 500 ML ×2 (20:50→22:42)
[2017-09-25] MEDS: ATORVASTATIN 10 MG TAB PO (21:00)
[2017-09-25 21:21] LABS: ANION GAP 10 (8-16); CARBON DIOXIDE 19 mmol/L (21-31); CHLORIDE 116 mmol/L (97-110); POTASSIUM 4.1 mmol/L (3.5-5.1); SODIUM 141 mmol/L (135-144)
[2017-09-25 21:34] LABS: WHITE BLOOD COUNT 9.7 10^3/ul (4.8-10.8)
[2017-09-25 21:34] LABS: BASOPHILS % 0.3 % (0.0-2.0); EOSINOPHILS # 0.1 10^3/ul (0.0-0.5); EOSINOPHILS % 1.3 % (0.0-7.0); HEMATOCRIT 30.6 % (37.0-47.0); HEMOGLOBIN 10.1 g/dl (12.0-16.0); LYMPHOCYTES # 1.9 10^3/ul (0.8-2.9); LYMPHOCYTES % 19.8 % (15.0-51.0); MEAN CORPUSCULAR HEMOGLOBIN 31.6 pg (29.0-33.0); MEAN CORPUSCULAR VOLUME 95.6 fl (82.0-101.0); MEAN PLATELET VOLUME 10.5 fl (7.4-10.4); MONOCYTE # 0.3 10^3/ul (0.3-0.9); MONOCYTES % 3.1 % (0.0-11.0); NEUTROPHIL # 7.3 10^3/ul (1.6-7.5); PLATELET COUNT 230 10^3/UL (140-415); RED CELL DISTRIBUTION WIDTH 13.1 % (11.5-14.5)
[2017-09-25] MEDS: BACITRACIN 50000 UNITS INJ (22:18)
[2017-09-25] MEDS: POLYMYXIN B 500000 UNIT INJ IRR (22:19)
[2017-09-26] MEDS ORDERED: FENTAnyl 50 MCG/ML VIAL IV
[2017-09-26] MEDS ORDERED: HYDROmorphONE (0.2 MG/ML) 10ML SYG IV
[2017-09-26] MEDS ORDERED: PROCHLORPERAZINE 10 MG INJ IV
[2017-09-26] MEDS ORDERED: EPHEDrine SULFATE 50 MG/5 ML SYG IV
[2017-09-26] MEDS ORDERED: MEPERIDINE 25 MG INJ IV
[2017-09-26] MEDS: SOD CHLORIDE 0.9% 250 ML IV* (00:28)
[2017-09-26] MEDS ORDERED: HYDROCODONE/APAP (5/325) TAB PO (00:30)
[2017-09-26] MEDS ORDERED: ALBUMIN HUMAN 5% 250 ML (00:30)
[2017-09-26] MEDS ORDERED: NACL 0.9% 3 ML SYG IV (00:30)
[2017-09-26 00:53] LABS: ADD MAN DIFF? NO
[2017-09-26] MEDS ORDERED: DIPHENHYDRAMINE 50 MG INJ IV ×2 (01:00)
[2017-09-26] MEDS ORDERED: NALOXONE (0.4 MG/ML) INJ IV (01:00)
[2017-09-26] MEDS ORDERED: ONDANSETRON 4 MG INJ IV ×2 (01:00)
[2017-09-26] MEDS ORDERED: HYDROmorphONE 0.5 MG/0.5 ML SYG IV ×2 (01:00)
[2017-09-26 01:04] LABS: AADO2 Arterial 293.8 mmHg (7.0-24.0); Arterial Base Excess -9.4 mmol/L (-3.0-3); Arterial Blood Gas Oxygen Sat 96.6 mmHG (95.0-100.0); Arterial COHb 0.3 % (0.0-3.0); Arterial Fraction of Oxyhgb 95.6 % (93.0-99.0); Arterial HCO3 16.4 mmol/L (22.0-26.0); Arterial MetHb 0.7 % (0.0-1.5); Arterial Total Hemglobin 3.7 g/dl (12.0-18.0); Arterial pCO2 35.2 mmhg (35-45); MODE SIMPLE MASK; Site A-Line
[2017-09-26] MEDS: CEFAZOLIN 1 GM/50 ML (PMX) 50 ML IVPB ×3 (01:09→16:06)
[2017-09-26] MEDS: ALBUMIN HUMAN 5% 250 ML IV (01:16)
[2017-09-26 01:28] LABS: ADD MAN DIFF? NO
[2017-09-26 01:30] LABS: ABNORMAL IP MESSAGE 1; EOSINOPHILS % 0.1 % (0.0-7.0); HEMATOCRIT 11.7 % (37.0-47.0); LYMPHOCYTES # 0.7 10^3/ul (0.8-2.9); LYMPHOCYTES % 7.7 % (15.0-51.0); MEAN CORPUSCULAR HEMOGLOBIN 29.5 pg (29.0-33.0); MEAN CORPUSCULAR HGB CONC 32.5 g/dl (32.0-37.0); MEAN CORPUSCULAR VOLUME 90.7 fl (82.0-101.0); MEAN PLATELET VOLUME 9.9 fl (7.4-10.4); MONOCYTE # 0.6 10^3/ul (0.3-0.9); MONOCYTES % 6.3 % (0.0-11.0); NEUTROPHIL # 7.8 10^3/ul (1.6-7.5); NEUTROPHILS % 84.7 % (39.0-77.0); PLATELET COUNT 53 10^3/UL (140-415); RED BLOOD COUNT 1.29 10^6/ul (4.20-5.40); RED CELL DISTRIBUTION WIDTH 16.7 % (11.5-14.5)
[2017-09-26 01:30] LABS: WHITE BLOOD COUNT 9.2 10^3/ul (4.8-10.8)
[2017-09-26 01:49] LABS: ANION GAP 15 (8-16); BLOOD UREA NITROGEN 9 mg/dl (7-20); CALCIUM 6.3 mg/dl (8.4-10.2); CARBON DIOXIDE 16 mmol/L (21-31); CHLORIDE 115 mmol/L (97-110); CREATININE 0.61 mg/dl (0.44-1.00); GLUCOSE 187 mg/dl (70-220); POTASSIUM 4.6 mmol/L (3.5-5.1); SODIUM 141 mmol/L (135-144)
[2017-09-26] MEDS: DEXTROSE 5%-LR 1,000 ML IV (02:07)
[2017-09-26] MEDS: HYDROmorphONE 0.5 MG/0.5 ML SYG IV (02:13)
[2017-09-26 02:29] LABS: HEMOGLOBIN 3.8 g/dl (12.0-16.0); POSITIVE DIFF @See below
[2017-09-26 04:11] LABS: RED BLOOD COUNT 1.29 10^6/ul (4.20-5.40)
[2017-09-26 04:11] LABS: WHITE BLOOD COUNT 9.2 10^3/ul (4.8-10.8)
[2017-09-26 04:12] LABS: HEMATOCRIT 11.7 % (37.0-47.0); HEMOGLOBIN 3.8 g/dl (12.0-16.0); MEAN CORPUSCULAR VOLUME 90.7 fl (82.0-101.0)
[2017-09-26 04:13] LABS: EOSINOPHILS % 0.1 % (0.0-7.0); LYMPHOCYTES % 7.7 % (15.0-51.0); MEAN CORPUSCULAR HEMOGLOBIN 29.5 pg (29.0-33.0); MEAN CORPUSCULAR HGB CONC 32.5 g/dl (32.0-37.0); MEAN PLATELET VOLUME 9.9 fl (7.4-10.4); MONOCYTES % 6.3 % (0.0-11.0); NEUTROPHILS % 84.7 % (39.0-77.0); PLATELET COUNT 53 10^3/UL (140-440); RED CELL DISTRIBUTION WIDTH 16.7 % (11.5-14.5)
[2017-09-26 04:14] LABS: LYMPHOCYTES # 0.7 10^3/ul (0.8-2.9); MONOCYTE # 0.6 10^3/ul (0.3-0.9); NEUTROPHIL # 7.8 10^3/ul (1.6-7.5)
[2017-09-26 04:24] LABS: ABNORMAL IP MESSAGE 1
[2017-09-26 05:32] LABS: ABNORMAL IP MESSAGE 1; HEMOGLOBIN 8.7 g/dl (12.0-16.0); MEAN CORPUSCULAR HEMOGLOBIN 28.6 pg (29.0-33.0); MEAN CORPUSCULAR HGB CONC 33.5 g/dl (32.0-37.0); MEAN CORPUSCULAR VOLUME 85.5 fl (82.0-101.0); MEAN PLATELET VOLUME 10.6 fl (7.4-10.4); PLATELET COUNT 58 10^3/UL (140-415); RED BLOOD COUNT 3.04 10^6/ul (4.20-5.40); RED CELL DISTRIBUTION WIDTH 16.1 % (11.5-14.5)
[2017-09-26 05:36] LABS: ADD MAN DIFF? YES; POSITIVE DIFF @See below
[2017-09-26 05:55] LABS: ANION GAP 11 (8-16); BLOOD UREA NITROGEN 9 mg/dl (7-20); CALCIUM 6.7 mg/dl (8.4-10.2); CARBON DIOXIDE 24 mmol/L (21-31); CHLORIDE 115 mmol/L (97-110); CREATININE 0.56 mg/dl (0.44-1.00); GLUCOSE 162 mg/dl (70-220); SODIUM 145 mmol/L (135-144)
[2017-09-26] MEDS: FAMOTIDINE 20 MG TAB PO ×2 (08:45→20:49)
[2017-09-26] MEDS ORDERED: ENOXAPARIN 40 MG/0.4 ML SYG SC (09:00)
[2017-09-26 09:11] LABS: ANISOCYTOSIS 1+ (0-0); BAND NEUTROPHILS % (M) 16 % (0-4); BURR CELLS 1+ (0-0); GIANT THROMBO% (M) 1 % (0-0); LYMPHOCYTES #M 1.6 10^3/ul (0.8-2.9); LYMPHOCYTES % (M) 13 % (15-51); MONOCYTE #M 0.2 10^3/ul (0.3-0.9); MONOCYTES % (M) 2 % (0-11); PLATELET ESTIMATE DECREASED; POIKILOCYTOSIS 1+ (0-0); POLYCHROMASIA 1+ (0-0); SEG NEUT #M 9.2 10^3/ul (1.6-7.5); SEGMENTED NEUTROPHILS (M) % 69 % (39-77); SMUDGE%M 5 % (0-0)
[2017-09-26] MEDS: traMADol 50 MG TAB NGT (18:03)
[2017-09-26 19:07] LABS: HEMATOCRIT 20.7 % (37.0-47.0); HEMOGLOBIN 7.1 g/dl (12.0-16.0)
[2017-09-26] MEDS: PROPRANOLOL 10 MG TAB PO (20:48)
[2017-09-26] MEDS: ATORVASTATIN 10 MG TAB PO (20:49)
[2017-09-26 21:40] LABS: IMMEDIATE SPIN CROSSMATCH 1 5
[2017-09-27 05:30] LABS: ADD MAN DIFF? NO
[2017-09-27 05:33] LABS: ABNORMAL IP MESSAGE 1; BASOPHILS % 0.2 % (0.0-2.0); EOSINOPHILS # 0.1 10^3/ul (0.0-0.5); EOSINOPHILS % 0.5 % (0.0-7.0); HEMOGLOBIN 8.9 g/dl (12.0-16.0); LYMPHOCYTES # 1.8 10^3/ul (0.8-2.9); LYMPHOCYTES % 15.3 % (15.0-51.0); MEAN CORPUSCULAR HEMOGLOBIN 28.7 pg (29.0-33.0); MEAN CORPUSCULAR HGB CONC 34.2 g/dl (32.0-37.0); MEAN CORPUSCULAR VOLUME 83.9 fl (82.0-101.0); MEAN PLATELET VOLUME 11.1 fl (7.4-10.4); MONOCYTES % 8.7 % (0.0-11.0); NEUTROPHILS % 75.1 % (39.0-77.0)
[2017-09-27 05:42] LABS: ANION GAP 10 (8-16); BLOOD UREA NITROGEN 9 mg/dl (7-20); CALCIUM 7.9 mg/dl (8.4-10.2); CARBON DIOXIDE 28 mmol/L (21-31); CHLORIDE 108 mmol/L (97-110); CREATININE 0.58 mg/dl (0.44-1.00); GLUCOSE 127 mg/dl (70-220); POTASSIUM 3.6 mmol/L (3.5-5.1); SODIUM 142 mmol/L (135-144)
[2017-09-27 06:10] LABS: POSITIVE DIFF @See below
[2017-09-27 06:12] LABS: PLATELET COUNT 67 10^3/UL (140-415)
[2017-09-27] MEDS: DOCUSATE SODIUM 100 MG CAP PO (09:29)
[2017-09-27] MEDS: traMADol 50 MG TAB NGT (09:29)
[2017-09-27] MEDS: FAMOTIDINE 20 MG TAB PO ×2 (09:30→20:49)
[2017-09-27] MEDS: PROPRANOLOL 10 MG TAB PO ×2 (09:30→20:50)
[2017-09-27] MEDS: ATORVASTATIN 10 MG TAB PO (20:49)
[2017-09-27] MEDS: ACETAMINOPHEN 325 MG TAB PO (21:59)
[2017-09-28 05:44] LABS: ADD MAN DIFF? NO
[2017-09-28 05:54] LABS: WHITE BLOOD COUNT 12.3 10^3/ul (4.8-10.8)
[2017-09-28 05:54] LABS: ABNORMAL IP MESSAGE 1; BASOPHILS % 0.2 % (0.0-2.0); EOSINOPHILS # 0.4 10^3/ul (0.0-0.5); EOSINOPHILS % 3.1 % (0.0-7.0); HEMATOCRIT 26.1 % (37.0-47.0); HEMOGLOBIN 8.9 g/dl (12.0-16.0); LYMPHOCYTES # 2.2 10^3/ul (0.8-2.9); MEAN CORPUSCULAR HEMOGLOBIN 29.2 pg (29.0-33.0); MEAN CORPUSCULAR HGB CONC 34.1 g/dl (32.0-37.0); MEAN CORPUSCULAR VOLUME 85.6 fl (82.0-101.0); MEAN PLATELET VOLUME 10.9 fl (7.4-10.4); MONOCYTE # 1.1 10^3/ul (0.3-0.9); MONOCYTES % 8.9 % (0.0-11.0); NEUTROPHIL # 8.5 10^3/ul (1.6-7.5); NEUTROPHILS % 69.3 % (39.0-77.0); PLATELET COUNT 89 10^3/UL (140-415); RED BLOOD COUNT 3.05 10^6/ul (4.20-5.40); RED CELL DISTRIBUTION WIDTH 15.3 % (11.5-14.5)
[2017-09-28 05:59] LABS: POSITIVE DIFF @See below
[2017-09-28] MEDS: FAMOTIDINE 20 MG TAB PO ×2 (09:30→20:10)
[2017-09-28] MEDS: PROPRANOLOL 10 MG TAB PO ×2 (09:31→20:10)
[2017-09-28] MEDS: traMADol 50 MG TAB PO (15:03)
[2017-09-28] MEDS: CEFTRIAXONE 1 GM/50 ML (PMX) 50 ML IVPB (16:46)
[2017-09-28 18:12] LABS: ADD UMIC NO; UR ASCORBIC ACID NEGATIVE (NEGATIVE); UR BILIRUBIN (Dip) NEGATIVE (NEGATIVE); UR BLOOD (Dip) NEGATIVE (NEGATIVE); UR CLARITY CLEAR (CLEAR); UR COLOR YELLOW (YELLOW); UR GLUCOSE (Dip) NEGATIVE (NEGATIVE); UR KETONES (Dip) NEGATIVE (NEGATIVE); UR LEUKOCYTE ESTERASE (Dip) NEGATIVE Leu/ul (NEGATIVE); UR NITRITE (Dip) NEGATIVE (NEGATIVE); UR SPECIFIC GRAVITY (Dip) 1.011 (1.003-1.030); UR TOTAL PROTEIN (Dip) NEGATIVE (NEGATIVE); UR UROBILINOGEN (Dip) NEGATIVE (NEGATIVE)
[2017-09-28] MEDS: ATORVASTATIN 10 MG TAB PO (20:10)
[2017-09-29 06:26] LABS: ANION GAP 8 (8-16); BLOOD UREA NITROGEN 7 mg/dl (7-20); CALCIUM 8.5 mg/dl (8.4-10.2); CARBON DIOXIDE 33 mmol/L (21-31); CHLORIDE 102 mmol/L (97-110); CREATININE 0.58 mg/dl (0.44-1.00); GLUCOSE 116 mg/dl (70-220); SODIUM 139 mmol/L (135-144)
[2017-09-29 06:42] LABS: ADD MAN DIFF? NO
[2017-09-29] MEDS: FAMOTIDINE 20 MG TAB PO ×2 (08:39→21:00)
[2017-09-29] MEDS: PROPRANOLOL 10 MG TAB PO ×2 (08:40→21:00)
[2017-09-29] MEDS: DOCUSATE SODIUM 100 MG CAP PO (08:45)
[2017-09-29] MEDS: traMADol 50 MG TAB PO (10:28)
[2017-09-29] MEDS ORDERED: traMADol 50 MG TAB PO (10:30)
[2017-09-29 10:41] LABS: BASOPHILS % 0.2 % (0.0-2.0); EOSINOPHILS # 0.5 10^3/ul (0.0-0.5); EOSINOPHILS % 4.9 % (0.0-7.0); HEMOGLOBIN 9.2 g/dl (12.0-16.0); LYMPHOCYTES # 2.4 10^3/ul (0.8-2.9); LYMPHOCYTES % 22.8 % (15.0-51.0); MEAN CORPUSCULAR HEMOGLOBIN 29.3 pg (29.0-33.0); MEAN CORPUSCULAR HGB CONC 32.9 g/dl (32.0-37.0); MEAN CORPUSCULAR VOLUME 89.2 fl (82.0-101.0); MEAN PLATELET VOLUME 11.3 fl (7.4-10.4); MONOCYTE # 0.9 10^3/ul (0.3-0.9); MONOCYTES % 8.7 % (0.0-11.0); NEUTROPHIL # 6.7 10^3/ul (1.6-7.5); NEUTROPHILS % 63.2 % (39.0-77.0); PLATELET COUNT 140 10^3/UL (140-415); RED BLOOD COUNT 3.14 10^6/ul (4.20-5.40); RED CELL DISTRIBUTION WIDTH 15.2 % (11.5-14.5)
[2017-09-29 10:41] LABS: WHITE BLOOD COUNT 10.6 10^3/ul (4.8-10.8)
[2017-09-29] MEDS ORDERED: HYDROmorphONE 0.5 MG/0.5 ML SYG IV (12:30)
[2017-09-29] MEDS: CEFTRIAXONE 1 GM/50 ML (PMX) 50 ML IVPB (16:11)
[2017-09-29] MEDS: ATORVASTATIN 10 MG TAB PO (21:00)
[2017-09-30 05:03] LABS: ADD MAN DIFF? NO
[2017-09-30 05:05] LABS: WHITE BLOOD COUNT 8.6 10^3/ul (4.8-10.8)
[2017-09-30 05:05] LABS: BASOPHILS % 0.5 % (0.0-2.0); EOSINOPHILS # 0.6 10^3/ul (0.0-0.5); HEMATOCRIT 26.2 % (37.0-47.0); HEMOGLOBIN 8.7 g/dl (12.0-16.0); LYMPHOCYTES # 2.5 10^3/ul (0.8-2.9); LYMPHOCYTES % 28.8 % (15.0-51.0); MEAN CORPUSCULAR HEMOGLOBIN 29.2 pg (29.0-33.0); MEAN CORPUSCULAR HGB CONC 33.2 g/dl (32.0-37.0); MEAN CORPUSCULAR VOLUME 87.9 fl (82.0-101.0); MONOCYTE # 0.9 10^3/ul (0.3-0.9); MONOCYTES % 10.8 % (0.0-11.0); NEUTROPHIL # 4.5 10^3/ul (1.6-7.5); NEUTROPHILS % 52.4 % (39.0-77.0); PLATELET COUNT 182 10^3/UL (140-415); RED BLOOD COUNT 2.98 10^6/ul (4.20-5.40); RED CELL DISTRIBUTION WIDTH 15.3 % (11.5-14.5)
[2017-09-30 05:29] LABS: ANION GAP 14 (8-16); BLOOD UREA NITROGEN 10 mg/dl (7-20); CALCIUM 8.6 mg/dl (8.4-10.2); CARBON DIOXIDE 33 mmol/L (21-31); CHLORIDE 99 mmol/L (97-110); CREATININE 0.58 mg/dl (0.44-1.00); GLUCOSE 107 mg/dl (70-220); POTASSIUM 3.7 mmol/L (3.5-5.1); SODIUM 142 mmol/L (135-144)
[2017-09-30] MEDS: traMADol 50 MG TAB PO (09:56)
[2017-09-30] MEDS: FAMOTIDINE 20 MG TAB PO ×2 (09:57→20:49)
[2017-09-30] MEDS: PROPRANOLOL 10 MG TAB PO ×2 (09:57→21:00)
[2017-09-30 11:45] LABS: ADD UMIC YES; UR ASCORBIC ACID NEGATIVE (NEGATIVE); UR BACTERIA FEW /HPF (NONE SEEN); UR BILIRUBIN (Dip) NEGATIVE (NEGATIVE); UR BLOOD (Dip) NEGATIVE (NEGATIVE); UR CLARITY CLEAR (CLEAR); UR COLOR STRAW (YELLOW); UR GLUCOSE (Dip) NEGATIVE (NEGATIVE); UR KETONES (Dip) NEGATIVE (NEGATIVE); UR LEUKOCYTE ESTERASE (Dip) TRACE Leu/ul (NEGATIVE); UR NITRITE (Dip) NEGATIVE (NEGATIVE); UR RBC 0 /HPF (0-5); UR SPECIFIC GRAVITY (Dip) 1.005 (1.003-1.030); UR TOTAL PROTEIN (Dip) NEGATIVE (NEGATIVE); UR UROBILINOGEN (Dip) NEGATIVE (NEGATIVE); UR WBC 1 /HPF (0-5)
[2017-09-30] MEDS: CEFTRIAXONE 1 GM/50 ML (PMX) 50 ML IVPB (16:47)
[2017-09-30] MEDS: DOCUSATE SODIUM 100 MG CAP PO (20:49)
[2017-09-30] MEDS: ATORVASTATIN 10 MG TAB PO (20:49)
[2017-10-01 06:21] LABS: ADD MAN DIFF? NO
[2017-10-01 06:44] LABS: BASOPHILS % 0.4 % (0.0-2.0); EOSINOPHILS # 0.7 10^3/ul (0.0-0.5); EOSINOPHILS % 7.4 % (0.0-7.0); HEMATOCRIT 26.6 % (37.0-47.0); HEMOGLOBIN 8.6 g/dl (12.0-16.0); LYMPHOCYTES # 2.3 10^3/ul (0.8-2.9); LYMPHOCYTES % 25.8 % (15.0-51.0); MEAN CORPUSCULAR HEMOGLOBIN 29.3 pg (29.0-33.0); MEAN CORPUSCULAR HGB CONC 32.3 g/dl (32.0-37.0); MEAN CORPUSCULAR VOLUME 90.5 fl (82.0-101.0); MEAN PLATELET VOLUME 9.7 fl (7.4-10.4); MONOCYTES % 10.5 % (0.0-11.0); NEUTROPHILS % 55.5 % (39.0-77.0); PLATELET COUNT 237 10^3/UL (140-415); RED BLOOD COUNT 2.94 10^6/ul (4.20-5.40); RED CELL DISTRIBUTION WIDTH 15.3 % (11.5-14.5)
[2017-10-01] MEDS: FAMOTIDINE 20 MG TAB PO (08:57)
[2017-10-01] MEDS: BETHANECHOL 10 MG TAB PO (08:57)
[2017-10-01] MEDS: PROPRANOLOL 10 MG TAB PO (08:58)
== END 2017-10-01 11:06 | DRG 481 ==
LOC: MS1 09-27 13:52 → ICU 09-26 01:43 → MS1 09-27 20:55 → E/R 11:50 → MS1 17:43
PROC: 0QS604Z Reposition Right Upper Femur with Internal Fixation Device, Open Approach (ICD-10-PCS; principal; 2017-09-25 00:06)
PROC: 0QP604Z Removal of Internal Fixation Device from Right Upper Femur, Open Approach (ICD-10-PCS; 2017-09-25 00:06)
PROC: 0YU70JZ Supplement Right Femoral Region with Synthetic Substitute, Open Approach (ICD-10-PCS; 2017-09-25 00:06)
PROC: 30233N1 Transfusion of Nonautologous Red Blood Cells into Peripheral Vein, Percutaneous Approach (ICD-10-PCS; 2017-09-25 00:06)
DX: T84.124A Displacement of internal fixation device of right femur, initial encounter (principal); D62 Acute posthemorrhagic anemia; S72.21XK Displaced subtrochanteric fracture of right femur, subsequent encounter for closed fracture with nonunion; D69.6 Thrombocytopenia, unspecified; E78.5 Hyperlipidemia, unspecified; I10 Essential (primary) hypertension; M81.0 Age-related osteoporosis without current pathological fracture; R94.31 Abnormal electrocardiogram [ECG] [EKG]; R33.9 Retention of urine, unspecified; W01.0XXD Fall on same level from slipping, tripping and stumbling without subsequent striking against object, subsequent encounter
CPT/HCPCS: 36415; 36430; 36600; 71045; 72192; 73500; 73530; 80048; 80051; 80053; 81001; 81003; 82803; 85014; 85018; 85025; 85610; 85730; 86850; 86900; 86901; 86920; 87081; 87086; 88300; 93005; 93306; 97110; 97116; 97161; 97530; 99285-25

== ENCOUNTER 2017-10-01 11:15 | Inpatient (IN) | payer MEDICARE, OTHER ==
[2017-10-01] MEDS ORDERED: DOCUSATE SODIUM 100 MG CAP PO (12:30)
[2017-10-01] MEDS ORDERED: ACETAMINOPHEN 325 MG TAB PO ×2 (12:30→21:00)
[2017-10-01] MEDS ORDERED: morphine 2 MG INJ IV (13:00)
[2017-10-01] MEDS ORDERED: ONDANSETRON 4 MG INJ IV (13:00)
[2017-10-01] MEDS ORDERED: CEFTRIAXONE 1 GM/50 ML (PMX) 50 ML IVPB (14:00)
[2017-10-01] MEDS: traMADol 50 MG TAB PO (14:29)
[2017-10-01 16:15] LABS: ADD UMIC YES; UR ASCORBIC ACID NEGATIVE (NEGATIVE); UR BILIRUBIN (Dip) NEGATIVE (NEGATIVE); UR BLOOD (Dip) 1+ mg/dL (NEGATIVE); UR CLARITY CLEAR (CLEAR); UR COLOR STRAW (YELLOW); UR GLUCOSE (Dip) NEGATIVE (NEGATIVE); UR KETONES (Dip) NEGATIVE (NEGATIVE); UR LEUKOCYTE ESTERASE (Dip) NEGATIVE Leu/ul (NEGATIVE); UR NITRITE (Dip) NEGATIVE (NEGATIVE); UR RBC 0 /HPF (0-5); UR SPECIFIC GRAVITY (Dip) 1.004 (1.003-1.030); UR TOTAL PROTEIN (Dip) NEGATIVE (NEGATIVE); UR UROBILINOGEN (Dip) NEGATIVE (NEGATIVE); UR WBC 1 /HPF (0-5)
[2017-10-01] MEDS: HYDROmorphONE 0.5 MG/0.5 ML SYG IV ×2 (16:16→19:37)
[2017-10-01] MEDS: CEFTRIAXONE 1 GM/50 ML (PMX) 50 ML IVPB (16:46)
[2017-10-01] MEDS: FAMOTIDINE 20 MG TAB PO (19:36)
[2017-10-01] MEDS: ATORVASTATIN 10 MG TAB PO (20:33)
[2017-10-01] MEDS: BETHANECHOL 10 MG TAB PO (20:33)
[2017-10-01] MEDS: PROPRANOLOL 10 MG TAB PO ×2 (20:45→21:53)
[2017-10-01] MEDS ORDERED: FAMOTIDINE 20 MG TAB PO (21:00)
[2017-10-01] MEDS ORDERED: BISACODYL 10 MG SUPP PR (21:00)
[2017-10-01] MEDS ORDERED: LACTULOSE 30ML CUP PO (21:30)
[2017-10-01] MEDS: MAGNESIUM HYDROXIDE 30ML CUP PO (21:39)
[2017-10-01] MEDS: SENNA TAB PO (21:39)
[2017-10-01] MEDS: DOCUSATE SODIUM 100 MG CAP PO (21:39)
[2017-10-02 07:06] LABS: ADD MAN DIFF? NO
[2017-10-02 07:36] LABS: ALANINE AMINOTRANSFERASE 58 IU/L (13-69); ALBUMIN 3.1 g/dl (3.3-4.9); ALBUMIN/GLOBULIN RATIO 1.14; ALKALINE PHOSPHATASE 77 IU/L (42-121); ANION GAP 13 (8-16); ASPARTATE AMINO TRANSFERASE 48 IU/L (15-46); BILIRUBIN,INDIRECT 0.4 mg/dl (0-1.1); BILIRUBIN,TOTAL 0.4 mg/dl (0.2-1.3); BLOOD UREA NITROGEN 9 mg/dl (7-20); CALCIUM 8.8 mg/dl (8.4-10.2); CARBON DIOXIDE 35 mmol/L (21-31); CHLORIDE 98 mmol/L (97-110); CREATININE 0.57 mg/dl (0.44-1.00); GLUCOSE 117 mg/dl (70-220); POTASSIUM 4.2 mmol/L (3.5-5.1); SODIUM 142 mmol/L (135-144); TOTAL PROTEIN 5.8 g/dl (6.1-8.1)
[2017-10-02] MEDS: DOCUSATE SODIUM 100 MG CAP PO ×2 (08:14→21:00)
[2017-10-02] MEDS: BETHANECHOL 10 MG TAB PO ×3 (08:15→21:05)
[2017-10-02] MEDS: FAMOTIDINE 20 MG TAB PO (08:15)
[2017-10-02] MEDS: PROPRANOLOL 10 MG TAB PO ×2 (08:15→21:00)
[2017-10-02 08:18] LABS: WHITE BLOOD COUNT 8.5 10^3/ul (4.8-10.8)
[2017-10-02 08:18] LABS: BASOPHILS % 0.4 % (0.0-2.0); EOSINOPHILS # 0.5 10^3/ul (0.0-0.5); EOSINOPHILS % 5.3 % (0.0-7.0); HEMOGLOBIN 9.2 g/dl (12.0-16.0); LYMPHOCYTES # 1.8 10^3/ul (0.8-2.9); LYMPHOCYTES % 21.7 % (15.0-51.0); MEAN CORPUSCULAR HEMOGLOBIN 29.6 pg (29.0-33.0); MEAN CORPUSCULAR HGB CONC 32.9 g/dl (32.0-37.0); MEAN PLATELET VOLUME 9.4 fl (7.4-10.4); MONOCYTE # 0.9 10^3/ul (0.3-0.9); MONOCYTES % 10.7 % (0.0-11.0); NEUTROPHIL # 5.2 10^3/ul (1.6-7.5); NEUTROPHILS % 61.4 % (39.0-77.0); PLATELET COUNT 325 10^3/UL (140-415); RED BLOOD COUNT 3.11 10^6/ul (4.20-5.40); RED CELL DISTRIBUTION WIDTH 15.7 % (11.5-14.5)
[2017-10-02] MEDS: ENOXAPARIN 40 MG/0.4 ML SYG SC (08:19)
[2017-10-02] MEDS: traMADol 50 MG TAB PO (12:48)
[2017-10-02] MEDS: CEFTRIAXONE 1 GM/50 ML (PMX) 50 ML IVPB (16:39)
[2017-10-02] MEDS: SENNA TAB PO (21:00)
[2017-10-02] MEDS: ATORVASTATIN 10 MG TAB PO (21:05)
[2017-10-03] MEDS: DOCUSATE SODIUM 100 MG CAP PO ×2 (08:14→20:42)
[2017-10-03] MEDS: PROPRANOLOL 10 MG TAB PO ×2 (08:14→20:42)
[2017-10-03] MEDS: ENOXAPARIN 40 MG/0.4 ML SYG SC (08:15)
[2017-10-03] MEDS: FAMOTIDINE 20 MG TAB PO (08:15)
[2017-10-03] MEDS: BETHANECHOL 10 MG TAB PO ×3 (08:15→20:37)
[2017-10-03] MEDS: traMADol 50 MG TAB PO (09:52)
[2017-10-03] MEDS: ATORVASTATIN 10 MG TAB PO (20:38)
[2017-10-03] MEDS: SENNA TAB PO (20:42)
[2017-10-04] MEDS: DOCUSATE SODIUM 100 MG CAP PO ×2 (08:34→21:47)
[2017-10-04] MEDS: FAMOTIDINE 20 MG TAB PO (08:34)
[2017-10-04] MEDS: BETHANECHOL 10 MG TAB PO ×3 (08:34→21:49)
[2017-10-04] MEDS: ENOXAPARIN 40 MG/0.4 ML SYG SC (08:36)
[2017-10-04] MEDS: traMADol 50 MG TAB PO (08:40)
[2017-10-04] MEDS: PROPRANOLOL 10 MG TAB PO (09:31)
[2017-10-04] MEDS: PROPRANOLOL 20 MG TAB PO (21:00)
[2017-10-04] MEDS: SENNA TAB PO (21:00)
[2017-10-04] MEDS: ATORVASTATIN 10 MG TAB PO (21:49)
[2017-10-05] MEDS: MAGNESIUM HYDROXIDE 30ML CUP PO (06:35)
[2017-10-05] MEDS: DOCUSATE SODIUM 100 MG CAP PO ×2 (08:26→21:00)
[2017-10-05] MEDS: BETHANECHOL 10 MG TAB PO ×3 (08:26→21:12)
[2017-10-05] MEDS: FAMOTIDINE 20 MG TAB PO (08:26)
[2017-10-05] MEDS: ENOXAPARIN 40 MG/0.4 ML SYG SC (08:28)
[2017-10-05] MEDS: PROPRANOLOL 20 MG TAB PO ×2 (08:37→21:00)
[2017-10-05] MEDS: traMADol 50 MG TAB PO (14:41)
[2017-10-05] MEDS: SENNA TAB PO (21:00)
[2017-10-05] MEDS: ATORVASTATIN 10 MG TAB PO (21:12)
[2017-10-06] MEDS: DOCUSATE SODIUM 100 MG CAP PO ×2 (08:39→20:54)
[2017-10-06] MEDS: FAMOTIDINE 20 MG TAB PO (08:39)
[2017-10-06] MEDS: ENOXAPARIN 40 MG/0.4 ML SYG SC (08:39)
[2017-10-06] MEDS: PROPRANOLOL 20 MG TAB PO ×2 (08:40→20:54)
[2017-10-06] MEDS: ATORVASTATIN 10 MG TAB PO (20:53)
[2017-10-06] MEDS: SENNA TAB PO (20:54)
[2017-10-07] MEDS: traMADol 50 MG TAB PO (08:45)
[2017-10-07] MEDS: ENOXAPARIN 40 MG/0.4 ML SYG SC (08:47)
[2017-10-07] MEDS: FAMOTIDINE 20 MG TAB PO (08:48)
[2017-10-07] MEDS: DOCUSATE SODIUM 100 MG CAP PO ×3 (08:49→20:18)
[2017-10-07] MEDS: PROPRANOLOL 20 MG TAB PO ×2 (08:49→20:19)
[2017-10-07] MEDS: SENNA TAB PO (20:18)
[2017-10-07] MEDS: ATORVASTATIN 10 MG TAB PO (20:20)
[2017-10-08] MEDS: PROPRANOLOL 20 MG TAB PO ×2 (09:00→20:55)
[2017-10-08] MEDS: DOCUSATE SODIUM 100 MG CAP PO ×2 (09:00→20:55)
[2017-10-08] MEDS: FAMOTIDINE 20 MG TAB PO (09:14)
[2017-10-08] MEDS: traMADol 50 MG TAB PO (09:15)
[2017-10-08] MEDS: ENOXAPARIN 40 MG/0.4 ML SYG SC (19:16)
[2017-10-08] MEDS: ATORVASTATIN 10 MG TAB PO (20:55)
[2017-10-08] MEDS: SENNA TAB PO (20:56)
[2017-10-09] MEDS ORDERED: DEXTROSE 50% 50 ML SYRINGE (06:32)
[2017-10-09] MEDS: FAMOTIDINE 20 MG TAB PO (08:17)
[2017-10-09] MEDS: DOCUSATE SODIUM 100 MG CAP PO ×2 (08:17→20:18)
[2017-10-09] MEDS: PROPRANOLOL 20 MG TAB PO ×2 (08:25→20:18)
[2017-10-09] MEDS: ENOXAPARIN 40 MG/0.4 ML SYG SC (08:28)
[2017-10-09] MEDS: ATORVASTATIN 10 MG TAB PO (20:18)
[2017-10-09] MEDS: SENNA TAB PO (20:19)
[2017-10-10] MEDS: FAMOTIDINE 20 MG TAB PO (08:58)
[2017-10-10] MEDS: DOCUSATE SODIUM 100 MG CAP PO ×2 (08:58→20:12)
[2017-10-10] MEDS: PROPRANOLOL 20 MG TAB PO ×2 (08:58→20:15)
[2017-10-10] MEDS: ENOXAPARIN 40 MG/0.4 ML SYG SC (08:59)
[2017-10-10] MEDS: SENNA TAB PO (20:12)
[2017-10-10] MEDS: ATORVASTATIN 10 MG TAB PO (20:12)
[2017-10-11] MEDS: ENOXAPARIN 40 MG/0.4 ML SYG SC (08:14)
[2017-10-11] MEDS: FAMOTIDINE 20 MG TAB PO (08:15)
[2017-10-11] MEDS: PROPRANOLOL 20 MG TAB PO ×2 (08:15→20:21)
[2017-10-11] MEDS: DOCUSATE SODIUM 100 MG CAP PO ×2 (08:15→20:21)
[2017-10-11] MEDS: traMADol 50 MG TAB PO (12:29)
[2017-10-11] MEDS: ATORVASTATIN 10 MG TAB PO (20:20)
[2017-10-11] MEDS: SENNA TAB PO (20:21)
[2017-10-12] MEDS: traMADol 50 MG TAB PO (07:32)
[2017-10-12] MEDS: DOCUSATE SODIUM 100 MG CAP PO (08:09)
[2017-10-12] MEDS: FAMOTIDINE 20 MG TAB PO (08:09)
[2017-10-12] MEDS: ENOXAPARIN 40 MG/0.4 ML SYG SC (08:10)
[2017-10-12] MEDS: PROPRANOLOL 20 MG TAB PO (08:10)
== END 2017-10-12 11:00 | disposition home health service (06) | DRG 561 ==
LOC: VRC 11:15
PROC: F07Z5ZZ Bed Mobility Treatment (ICD-10-PCS; principal; 2017-10-02)
PROC: F07Z8ZZ Transfer Training Treatment (ICD-10-PCS; 2017-10-02)
PROC: F07Z9ZZ Gait Training/Functional Ambulation Treatment (ICD-10-PCS; 2017-10-02)
PROC: F08Z2ZZ Grooming/Personal Hygiene Treatment (ICD-10-PCS; 2017-10-02)
PROC: F08Z1ZZ Dressing Techniques Treatment (ICD-10-PCS; 2017-10-02)
PROC: F08Z0ZZ Bathing/Showering Techniques Treatment (ICD-10-PCS; 2017-10-02)
DX: S72.21XD Displaced subtrochanteric fracture of right femur, subsequent encounter for closed fracture with routine healing (principal); D64.9 Anemia, unspecified; E78.5 Hyperlipidemia, unspecified; I10 Essential (primary) hypertension; R52 Pain, unspecified; R33.9 Retention of urine, unspecified; R94.31 Abnormal electrocardiogram [ECG] [EKG]; X58.XXXD Exposure to other specified factors, subsequent encounter; Z74.09 Other reduced mobility; Z91.81 History of falling
CPT/HCPCS: 73500; 73510; 73550; 80053; 81001; 85025; 87081; 87086; 97110; 97112; 97116; 97150; 97162; 97167; 97530; 97535; 97542